=== PATIENT | male | born 1965 | race Caucasian/White ===

== ENCOUNTER 2017-02-18 04:12 | Inpatient (IN) | payer OTHER ==
[~2017-02-18] VITALS: Ht 182.9 cm; Wt 116.6 kg
[2017-02-18 04:15] VITALS: BP_SYST 111
--- NOTE | 2017-02-18 04:15 | NUR ---
Placed in room 6. Placed on hotel and dining room cashier, blood pressure machine and pulse oximeter. To gown for exam. Side rails up. Report given to Jason RATLIFF.
--- NOTE | 2017-02-18 04:20 | NUR ---
Patient brought to ED via ALS a/o x 4 with c/o near syncope and generalized weakness. Per patient, he reports taking an increased dose of seraquil and began to feel faint. States he began feeling generalized weakness. Denies CP. Per EMS, upon arrival patient skin was diaphoretic. Patients skin cool and dry upon arrival. Presents with BP 104/63. Patient feels as if he may be having a panic attack. at bedside. Will continue to monitor.
--- NOTE | 2017-02-18 04:20 | NUR ---
ED MD Ortega at bedside for medical evaluation.
[2017-02-18] MEDS ORDERED: NACL 0.9% 1,000 ML IV ONE ×2 (04:45→06:30)
[2017-02-18 05:04] LABS: CALCIUM 8.4 mg/dL (8.4-11.0); CREATININE 1.51 mg/dL (0.55-1.30); POTASSIUM 3.4 mmol/L (3.5-5.1)
[2017-02-18 05:06] LABS: BASOPHILS % (AUTO) 2.8 % (0.0-2.0); EOSINOPHILS % (AUTO) 0.6 % (0.0-4.0); HEMOGLOBIN 14.4 g/dL (14.0-18.0); INR 1.1 (0.80-1.20); LYMPHOCYTES # (AUTO) 1.3 K/uL (1.0-5.5); LYMPHOCYTES % (AUTO) 28.4 % (20.5-51.5); MEAN CORPUSCULAR HEMOGLOBIN 31 pg (27-31); MEAN CORPUSCULAR HGB CONC 34 % (32-36); MEAN CORPUSCULAR VOLUME 92 fL (79.0-98.0); MONOCYTES % (AUTO) 14.7 % (1.7-9.3); NEUTROPHILS # (AUTO) 2.6 K/uL (1.8-7.7); NEUTROPHILS % (AUTO) 53.5 % (40.0-70.0); PLATELET COUNT (AUTO) 141 K/uL (130-430); PROTHROMBIN TIME 11.7 SECS (9.5-12.5); RED BLOOD CELL COUNT(AUTO) 4.65 MIL/uL (4.2-6.2); WHITE BLOOD COUNT (AUTO) 4.7 K/uL (4.8-10.8)
[2017-02-18 05:07] LABS: BASOPHILS # (AUTO) 0.1 K/uL (0.0-0.2); MONOCYTES # (AUTO) 0.7 K/uL (0.0-1.0)
--- NOTE | 2017-02-18 05:07 | NUR ---
Medicated per MD orders. IVF infusing with no s/s of infiltration at this time. Will continue to monitor.
[2017-02-18 05:11] LABS: ALBUMIN 3.3 g/dL (3.4-4.8); TOTAL BILIRUBIN 0.6 mg/dL (0.0-1.0)
--- NOTE | 2017-02-18 05:24 | NUR ---
Radiology at bedside.
--- NOTE | 2017-02-18 06:32 | NUR ---
Medicated per MD orders. IVF infusing with no s/s of infiltration at this time. Will continue to monitor.
--- NOTE | 2017-02-18 06:51 | NUR ---
Patient transported off unit via gurney for CT via radiology staff.
--- NOTE | 2017-02-18 07:10 | NUR ---
Report given to Chelle RATLIFF.
[2017-02-18 07:17] LABS: BILIRUBIN,URINE NEGATIVE (NEGATIVE); BLOOD, URINE NEGATIVE (NEGATIVE); CLARITY/URINE CLEAR (CLEAR); COLOR,URINE YELLOW (YELLOW); GLUCOSE,URINE NEGATIVE (NEGATIVE); KETONES,URINE TRACE (NEGATIVE); LEUKOCYTE ESTERASE ,URINE NEGATIVE (NEGATIVE); NITRITE, URINE NEGATIVE (NEGATIVE); PROTEIN URINE 1+ (NEGATIVE)
[2017-02-18 07:28] LABS: BACTERIA,URINE None Seen /HPF (None Seen); HYALINE CASTS, URINE 0-10 /LPF (None Seen); MUCUS,URINE 3+ /LPF (None Seen); RBC,URINE 0-3 /HPF (0-3); WBC,URINE 0-3 /HPF (0-3)
[2017-02-18] MEDS ORDERED: GABA-529 PO (08:08)
[2017-02-18] MEDS ORDERED: QUET200T PO (08:08)
[2017-02-18] MEDS ORDERED: DIVA250T34 PO (08:08)
[2017-02-18] MEDS ORDERED: DIVA500T4 PO (08:08)
[2017-02-18] MEDS ORDERED: MELA3TAB37 PO (08:08)
[2017-02-18] MEDS ORDERED: BUPR300T55 PO (08:08)
[2017-02-18] MEDS ORDERED: BUSP5TAB3 PO (08:08)
[2017-02-18] MEDS ORDERED: OMEP20CA10 PO (08:08)
[2017-02-18] MEDS ORDERED: LOSA50TA3 PO (08:08)
[2017-02-18] MEDS ORDERED: PROP10TA10 PO (08:08)
[2017-02-18] MEDS ORDERED: ROPI2TAB4 PO (08:08)
--- NOTE | 2017-02-18 08:25 | NUR ---
Patient will be admitted to care of DR MAY. Admitted to TELEMETRY unit. Will go to room 101-A. Belongings list completed. Summary report printed. Report will be given at bedside.
[2017-02-18 08:30] VITALS: BP_SYST 115
--- NOTE | 2017-02-18 08:30 | NUR ---
ADMISSION NOTE Received patient from ER via gurney. Patient admitted with diagnosis of syncope. Patient is awake, alert, oriented X4. Patient oriented to hospital room, call light, toileting, pain management and safety-teach back done. Patient informed that Adelaida will be nurse and that their room number is 101A. Personal belongings checked and Belongings List documented. Call light within reach.
[2017-02-18] MEDS: NACL 0.9% 1,000 ML IV SCH ×2 (08:59→18:49)
--- NOTE | 2017-02-18 09:00 | NUR ---
Patient alert/oriented x4 , denies any pain , discussed plan of care , lab result, hydration , cardiac monitoring for possible arrhythmia, safety to call for assistance if he wants to get out of bed call light within reach, verbalized understanding, Iv fluid started , encouraged to increase oral fluid intake , provided water and urinals at bedside for safety.
[2017-02-18] MEDS ORDERED: OMEPRAZOLE 20 MG CAPSULE.DR (PriLOSEC) PO SCH (10:45)
[2017-02-18] MEDS ORDERED: PROPRANOLOL HCL 10 MG TABLET (INDERAL) PO SCH (10:45)
--- NOTE | 2017-02-18 12:30 | NUR ---
Resting in bed after lunch denies any dizziness, tolerates po well , needs attended.
[2017-02-18] MEDS ORDERED: PROPRANOLOL HCL 10 MG TABLET (INDERAL) PO PRN (14:53)
--- NOTE | 2017-02-18 14:55 | NUR ---
Complaining of chronic posterior headache 09/26 denies any dizziness no blurring of vision , vitals sign stable , Dr Garcia informed with n.o carried out will follow up.
[2017-02-18] MEDS ORDERED: ACETAMINOPHEN 325 MG TABLET PO PRN (15:00)
[2017-02-18] MEDS: busPIRone HCL 5 MG TABLET PO SCH ×2 (15:02→20:16)
--- NOTE | 2017-02-18 15:06 | NUR ---
PSYCH CONSULT CALLED TO DR ORTIZ, DR MATHEWS APICULTURIST, RE: ADJUSTMENT OF PSYCH MEDS. SPOKE TO KEELY
[2017-02-18] MEDS ORDERED: ACETAMINOPHEN 325 MG TABLET ONE (15:10)
[2017-02-18 15:56] VITALS: BP_SYST 133
[2017-02-18 19:15] VITALS: BP_SYST 124
--- NOTE | 2017-02-18 19:15 | NUR ---
Initial Notes Received patient in bed, awake alert oriented x4 with at bedside. No s/s of any distress noted. IV noted L a/c 20g no infiltrate and with good blood return. All extremities are strong, bedrest d/t syncopal episode at home . Discussed plan of care with patient and verbalized understanding. Left bed in low position, bed alarm on and with side rails up x3. Will cont to monitor.
[2017-02-18] MEDS ORDERED: DIVALPROEX SODIUM 500 MG TAB.SR.24H (DEPAKOTE ER) PO SCH (21:00)
[2017-02-18] MEDS ORDERED: GABAPENTIN 100 MG CAPSULE PO SCH (21:00)
--- NOTE | 2017-02-18 21:15 | NUR ---
Rounds Patient is awake watching tv at this time. No s/s of any distress noted. Call light in reach, will cont to monitor.
--- NOTE | 2017-02-18 23:15 | NUR ---
Rounds Patient is awake watching at this time. No s/s of any distress noted. Call light in reach, will cont to monitor.
--- NOTE | 2017-02-18 23:37 | NUR ---
Tylenol for headache Admin Tylenol PRN for headache. Will reassess after 30 mins.
[2017-02-19 00:26] VITALS: BP_SYST 128
--- NOTE | 2017-02-19 00:50 | NUR ---
Inderal PRN for agitation Admin Inderal PRN for agitation. Will cont to monitor.
--- NOTE | 2017-02-19 02:50 | NUR ---
Rounds Assisted to b/r and safely back to bed. No s/s of any distress noted. Call light in reach, will cont to monitor.
[2017-02-19] MEDS: NACL 0.9% 1,000 ML IV SCH (03:45)
[2017-02-19 04:43] VITALS: BP_SYST 133
--- NOTE | 2017-02-19 06:48 | NUR ---
Final Notes Patient is resting at this time. No c/o pain or distress noted. All needs met and anticipated by nurses. Call light in reach, will endorse.
[2017-02-19 07:49] LABS: BASOPHILS % (AUTO) 0.5 % (0.0-2.0); EOSINOPHILS # (AUTO) 0.1 K/uL (0.0-0.4); EOSINOPHILS % (AUTO) 2.6 % (0.0-4.0); HEMOGLOBIN 13.5 g/dL (14.0-18.0); LYMPHOCYTES # (AUTO) 2.1 K/uL (1.0-5.5); LYMPHOCYTES % (AUTO) 36.5 % (20.5-51.5); MEAN CORPUSCULAR HEMOGLOBIN 31 pg (27-31); MEAN CORPUSCULAR HGB CONC 34 % (32-36); MEAN CORPUSCULAR VOLUME 93 fL (79.0-98.0); MONOCYTES # (AUTO) 0.6 K/uL (0.0-1.0); MONOCYTES % (AUTO) 10.1 % (1.7-9.3); NEUTROPHILS % (AUTO) 50.3 % (40.0-70.0); PLATELET COUNT (AUTO) 133 K/uL (130-430); RED BLOOD CELL COUNT(AUTO) 4.32 MIL/uL (4.2-6.2); RED CELL DISTRIBUTION WIDTH 12.8 % (9.0-15.0); WHITE BLOOD COUNT (AUTO) 5.8 K/uL (4.8-10.8)
[2017-02-19 07:53] VITALS: BP_SYST 127
--- NOTE | 2017-02-19 07:53 | NUR ---
Rounds Slept well after tylenol last night , denies any headache, no dizziness, plan of care, medication , safety discussed with patient verbalized understandings, needs attended.
[2017-02-19 08:16] LABS: ALBUMIN 3.1 g/dL (3.4-4.8); CALCIUM 8.1 mg/dL (8.4-11.0); CREATININE 1.21 mg/dL (0.55-1.30); POTASSIUM 4.3 mmol/L (3.5-5.1); TOTAL BILIRUBIN 0.7 mg/dL (0.0-1.0)
[2017-02-19] MEDS: busPIRone HCL 5 MG TABLET PO SCH (08:21)
[2017-02-19] MEDS ORDERED: buPROPion HCL 150 MG XL TAB PO SCH (09:00)
[2017-02-19] MEDS ORDERED: DIVALPROEX SODIUM 250 MG TABLET(DEPAKOTE) PO SCH (09:00)
--- NOTE | 2017-02-19 10:00 | NUR ---
Mobility Ambulate with steady gait no dizziness denies any headache, safety precaution instructed verbalized understanding . needs attended.
--- NOTE | 2017-02-19 11:00 | NUR ---
Seen and examined by Dr. Mcgill, [place] psychiatrist , discussed adjustment of medication patient agreed .
[2017-02-19] MEDS ORDERED: QUET200T PO (11:21)
[2017-02-19] MEDS ORDERED: LAM25 PO (11:22)
[2017-02-19 11:43] VITALS: BP_SYST 150
[2017-02-19 12:32] VITALS: BP_SYST 134
--- NOTE | 2017-02-19 12:35 | NUR ---
D/C Patient Patient given medication reconciliation form and D/C instructions. Exit Care provided. Patient verbalized understanding. MD discussed with patient the results and treatment provided. Ambulatory with steady gait for discharge to home. Patient in stable condition, ID band removed. IV catheter removed, intact and dressing applied, no active bleeding. Rx of SEROQUEL AND LAMICTAL given. Patient educated on pain management. All belongings sent with patient.
--- NOTE | 2017-02-19 13:00 | NUR ---
Discharge home accompanied by the sister via private car.
[2017-02-19] MEDS ORDERED: QUEtiapine FUMARATE 100 MG TABLET PO SCH (21:00)
[2017-02-20] MEDS ORDERED: LamoTRIgine 25 MG TABLET PO SCH (09:00)
== END 2017-02-19 13:00 | disposition home or self-care (01) | DRG 683 ==
LOC: SED 04:12 → STU 07:45 → SMU 02-19 12:54
PROVIDERS: ADMIT Internal Medicine
DX: N17.9 Acute kidney failure, unspecified (principal); F10.94 Alcohol use, unspecified with alcohol-induced mood disorder; I10 Essential (primary) hypertension; F25.0 Schizoaffective disorder, bipolar type; Y90.9 Presence of alcohol in blood, level not specified; F19.21 Other psychoactive substance dependence, in remission; E86.0 Dehydration; F29 Unspecified psychosis not due to a substance or known physiological condition; I95.1 Orthostatic hypotension; I77.810 Thoracic aortic ectasia; K21.9 Gastro-esophageal reflux disease without esophagitis; W19.XXXA Unspecified fall, initial encounter; Y93.89 Activity, other specified; Y92.89 Other specified places as the place of occurrence of the external cause; Y99.8 Other external cause status; Z79.899 Other long term (current) drug therapy; Z82.49 Family history of ischemic heart disease and other diseases of the circulatory system; Z82.3 Family history of stroke; Z87.891 Personal history of nicotine dependence
CPT/HCPCS: 36415; 70450-TC; 71010; 80053; 81000-TC; 82550-TC; 83605; 83880; 84484; 85025; 85610-TC; 87040-TC; 93005; 93306; 96360; 96361; 99285; J7030

== ENCOUNTER 2017-06-24 20:57 | Emergency (ER) | payer OTHER ==
[~2017-06-24] VITALS: Ht 182.9 cm; Wt 122.5 kg
[~2017-06-24 20:57] MED LIST: BUPR300T55 PO; BUSP5TAB3 PO; DIVA250T34 PO; DIVA500T4 PO; GABA-529 PO; LAM25 PO; LOSA50TA3 PO; MELA3TAB37 PO; OMEP20CA10 PO; PROP10TA10 PO; QUET200T PO
[2017-06-24 21:00] VITALS: BP_SYST 124
--- NOTE | 2017-06-24 23:00 | NUR ---
Patient to ER bed 5 to gown for evaluation. Side rails up. Report given by VEY Hanley to EVY Cuevas.
--- NOTE | 2017-06-24 23:01 | NUR ---
Patient AAOx4, ambulatory. Patient states having cough and fever for approximately 6 days prior to ER visit. Patient +nausea, denies vomiting and diarrhea at this time. Patient denies abdominal pain, SOB, and chest pain at this time. Patient states he has been "taking medication for it" but has no relief of symptoms. Patient denies any other complaints.
--- NOTE | 2017-06-24 23:18 | NUR ---
ER Dr. Potter at bedside examining patient.
[2017-06-25 00:34] VITALS: BP_SYST 124
--- NOTE | 2017-06-25 00:34 | NUR ---
Note adalidone in EDM - 06/25/17 at 0036 by JACQUIEEDWALEX Patient given written and verbal discharge instructions and verbalizes understanding. ER discussed with patient the results and treatment provided. Patient in stable condition. ID arm band removed. Rx of Paz ODT,Ibuprofen 800 mg and guaifenesin syrup given. Patient educated on pain management and to follow up with PMD. Pain Scale 0/10. Opportunity for questions provided and answered.
--- NOTE | 2017-06-25 00:34 | NUR ---
Patient given written and verbal discharge instructions and verbalizes understanding. ER MD discussed with patient the results and treatment provided. Patient in stable condition. ID arm band removed. Rx of Zofran ODT,Ibuprofen 800 mg and guaifenesin syrup given. Patient educated on pain management and to follow up with PMD. Pain Scale 0/10. Opportunity for questions provided and answered.
== END 2017-06-25 00:34 | disposition home or self-care (01) ==
LOC: SED 20:57
DX: A08.4 Viral intestinal infection, unspecified (principal); K21.9 Gastro-esophageal reflux disease without esophagitis; I10 Essential (primary) hypertension; J44.9 Chronic obstructive pulmonary disease, unspecified; Z79.899 Other long term (current) drug therapy
CPT/HCPCS: 36415; 86710; 99284

== ENCOUNTER 2021-07-20 17:33 | Emergency (ER) | payer OTHER, SELFPAY ==
[~2021-07-20] VITALS: Ht 182.9 cm; Wt 122.5 kg
[~2021-07-20 17:33] MED LIST changes: +ALBU90AE2 INH; +BUSP30TA2 PO; +DICY20TA55 PO; +DIVA-74 PO; +DIVA500T2 PO; +EXCED PO; +FLO110 INH; +LAMO100T31 PO; +LIP20 PO; +LORA-258 PO; +LOSA1TAB43 PO; -MELA3TAB37 PO; +MELA3TAB41 PO; +METO25TA3 PO; +MONT10TA22 PO; +NEU100 PO; -OMEP20CA10 PO; +OMEP20CA15 PO; +PRIM50TA PO; +QUET400T PO; +RANI-362 PO; +ROPI2TAB4 PO; +TRAZ50TA54 PO; +WELSR150 PO
[2021-07-20 18:40] VITALS: BP_SYST 142
--- NOTE | 2021-07-20 18:40 | NUR ---
Patient to ER CHAIR for evaluation. Side rails up. Report given to EVY JIMENEZ
--- NOTE | 2021-07-20 19:12 | NUR ---
ER Dr. Waters at bedside examining patient.
[2021-07-20] MEDS ORDERED: DECADRON 4 MG TABLET ONE (19:28)
[2021-07-20] MEDS ORDERED: DEXAMETHASONE SOD PHOSPHATE 4 MG/ML VIAL PO ONE (19:30)
[2021-07-20] MEDS ORDERED: KETOROLAC TROMETHAMINE 60 MG/2 ML VIAL IM ONE (19:30)
[2021-07-20] MEDS ORDERED: cefTRIAXone 1 GM in LIDOCAINE 1%, 20 ML MDV 2.1 ML IM ONE (19:30)
[2021-07-20] MEDS ORDERED: MED4 PO (20:14)
[2021-07-20] MEDS ORDERED: NAPR-1172 PO (20:14)
[2021-07-20] MEDS ORDERED: AMOX-426 PO (20:14)
[2021-07-20 20:30] VITALS: BP_SYST 136
--- NOTE | 2021-07-20 20:30 | NUR ---
Patient given written and verbal discharge instructions and verbalizes understanding. ER MD discussed with patient the results and treatment provided. Patient in stable condition. ID arm band removed. No IV Rx of augmentin, methylpredisolone, naprosyn given. Patient educated on pain management and to follow up with PMD. Pain Scale 5/10. Opportunity for questions provided and answered. Medication side effect fact sheet provided.
== END 2021-07-20 20:30 | disposition home or self-care (01) ==
LOC: SED 17:33
DX: J32.9 Chronic sinusitis, unspecified (principal); I10 Essential (primary) hypertension; K21.9 Gastro-esophageal reflux disease without esophagitis
CPT/HCPCS: 96372; 99284; J0696; J1885; J2001; J8540; 99283; J1100

== ENCOUNTER 2022-01-28 15:54 | Emergency (ER) | payer OTHER ==
[~2022-01-28] VITALS: Ht 182.9 cm; Wt 117.5 kg
[~2022-01-28 15:54] MED LIST changes: +AMOX-426 PO; +MED4 PO; +NAPR-1172 PO
[2022-01-28 16:28] VITALS: BP_SYST 136
--- NOTE | 2022-01-28 16:36 | NUR ---
Patient triaged and placed in waiting room. VSS and patient appears in no acute distress at this time. Accompanied by SELF, awaiting available bed, and MD notified of need for MSE.
--- NOTE | 2022-01-28 18:00 | NUR ---
ER at bedside examining patient.
--- NOTE | 2022-01-28 18:21 | NUR ---
Pt presents to the ER BIB from urgent care. CC Chronic back pain Onset 2 years ago Pt describes a flare up in past 2 weeks. pain scale 10/10 sharp pain to right posterior flank radiates to left posterior flank. Pt states elevating legs to reduce pressure on lower back is minimal relief. Pmhx HTN, tremors, sleep apnea, asthma NKA
[2022-01-28] MEDS ORDERED: MORPHINE 4 MG INJ. 4 MG/ML VIAL IM ONE (18:30)
[2022-01-28] MEDS ORDERED: LIDO1ADH71 TD (18:47)
[2022-01-28] MEDS ORDERED: METH-634 PO (18:47)
[2022-01-28] MEDS ORDERED: lidocain (18:47)
--- NOTE | 2022-01-28 20:30 | NUR ---
Patient given written and verbal discharge instructions and verbalizes understanding. ER MD discussed with patient the results and treatment provided. Patient in stable condition. ID arm band removed. Rx of given. Patient educated on pain management and to follow up with PMD. Pain Scale 3/10. Opportunity for questions provided and answered. Medication side effect fact sheet provided. Patient A/ox4, VSS, resp even and unlabored. NAD noted at this time.
[2022-01-28 20:48] VITALS: BP_SYST 125
== END 2022-01-28 20:48 | disposition home or self-care (01) ==
LOC: SED 15:54
DX: M51.26 Other intervertebral disc displacement, lumbar region (principal); I10 Essential (primary) hypertension; K21.9 Gastro-esophageal reflux disease without esophagitis; Z79.899 Other long term (current) drug therapy
CPT/HCPCS: 99283; 96372; J2270

== ENCOUNTER 2022-10-13 13:59 | Inpatient (IN) | payer OTHER ==
[~2022-10-13] VITALS: Ht 182.9 cm; Wt 114.8 kg
[~2022-10-13 13:59] MED LIST changes: +LIDO1ADH71 TD; +METH-634 PO; +MONT-47 PO; -MONT10TA22 PO; +lidocain
[2022-10-13 14:30] VITALS: BP_SYST 122
[2022-10-13 16:05] LABS: CREATININE 4.77 mg/dL (0.55-1.30)
[2022-10-13 16:09] LABS: ALBUMIN 3.2 g/dL (3.4-4.8); TOTAL BILIRUBIN 0.3 mg/dL (0.0-1.0)
[2022-10-13 17:49] LABS: BASOPHILS % (AUTO) 0.4 % (0.0-2.0); EOSINOPHILS # (AUTO) 0.1 K/uL (0.0-0.4); EOSINOPHILS % (AUTO) 1.7 % (0.0-4.0); HEMATOCRIT 38.2 % (36-54); HEMOGLOBIN 12.8 g/dL (14.0-18.0); LYMPHOCYTES # (AUTO) 1.1 K/uL (1.0-5.5); LYMPHOCYTES % (AUTO) 24.4 % (20.5-51.5); MEAN CORPUSCULAR HEMOGLOBIN 31 pg (27-31); MEAN CORPUSCULAR HGB CONC 34 % (32-36); MEAN CORPUSCULAR VOLUME 94 fL (79.0-98.0); MONOCYTES # (AUTO) 0.6 K/uL (0.0-1.0); MONOCYTES % (AUTO) 13.3 % (1.7-9.3); NEUTROPHILS # (AUTO) 2.8 K/uL (1.8-7.7); NEUTROPHILS % (AUTO) 60.2 % (40.0-70.0); PLATELET COUNT (AUTO) 121 K/uL (130-430); RED BLOOD CELL COUNT(AUTO) 4.08 MIL/uL (4.2-6.2); RED CELL DISTRIBUTION WIDTH 12.9 % (9.0-15.0); WHITE BLOOD COUNT (AUTO) 4.6 K/uL (4.8-10.8)
[2022-10-13] MEDS ORDERED: NACL 0.9% 1,000 ML IV ONE (19:30)
[2022-10-13] MEDS ORDERED: MELATONIN 3 MG TABLET PO SCH (21:45)
[2022-10-13] MEDS ORDERED: methylPREDNISolone 4 MG TABLET PO SCH (21:45)
[2022-10-13] MEDS ORDERED: PROPRANOLOL HCL 10 MG TABLET (INDERAL) PO SCH (21:45)
[2022-10-13] MEDS ORDERED: OMEPRAZOLE Non-Formulary 20 MG CAPSULE.DR PO SCH (21:45)
[2022-10-14] MEDS ORDERED: methocarbamoL 500 MG TABLET PO SCH
[2022-10-14 01:03] VITALS: BP_SYST 129
[2022-10-14 01:34] VITALS: BP_SYST 129
[2022-10-14 07:35] VITALS: BP_SYST 127
[2022-10-14 07:39] LABS: BASOPHILS % (AUTO) 0.3 % (0.0-2.0); EOSINOPHILS # (AUTO) 0.1 K/uL (0.0-0.4); EOSINOPHILS % (AUTO) 1.6 % (0.0-4.0); HEMATOCRIT 36.8 % (36-54); HEMOGLOBIN 12.5 g/dL (14.0-18.0); LYMPHOCYTES # (AUTO) 0.9 K/uL (1.0-5.5); LYMPHOCYTES % (AUTO) 21.5 % (20.5-51.5); MEAN CORPUSCULAR HEMOGLOBIN 32 pg (27-31); MEAN CORPUSCULAR HGB CONC 34 % (32-36); MEAN CORPUSCULAR VOLUME 93 fL (79.0-98.0); MONOCYTES # (AUTO) 0.6 K/uL (0.0-1.0); MONOCYTES % (AUTO) 14.5 % (1.7-9.3); NEUTROPHILS # (AUTO) 2.6 K/uL (1.8-7.7); NEUTROPHILS % (AUTO) 62.1 % (40.0-70.0); PLATELET COUNT (AUTO) 122 K/uL (130-430); RED BLOOD CELL COUNT(AUTO) 3.94 MIL/uL (4.2-6.2); RED CELL DISTRIBUTION WIDTH 12.6 % (9.0-15.0); WHITE BLOOD COUNT (AUTO) 4.2 K/uL (4.8-10.8)
[2022-10-14 07:47] LABS: CALCIUM 8.2 mg/dL (8.4-11.0); CREATININE 3.97 mg/dL (0.55-1.30)
[2022-10-14] MEDS ORDERED: LamoTRIgine 25 MG TABLET PO SCH (09:00)
[2022-10-14] MEDS ORDERED: NAPROXEN 250 MG TABLET PO SCH (09:00)
[2022-10-14] MEDS ORDERED: buPROPion HCL 150 MG XL TAB PO SCH (09:00)
[2022-10-14] MEDS ORDERED: DIVALPROEX SODIUM 250 MG TABLET(DEPAKOTE) PO SCH (09:00)
[2022-10-14] MEDS: busPIRone HCL 5 MG TABLET PO SCH ×3 (10:04→20:58)
[2022-10-14] MEDS: PANTOPRAZOLE SODIUM 40 MG TAB PO SCH (10:04)
[2022-10-14] MEDS: MONTELUKAST 10 MG TABLET PO SCH (10:04)
[2022-10-14 11:32] VITALS: BP_SYST 134
[2022-10-14] MEDS: 0.45% NACL 1,000 ML IV SCH (11:36)
[2022-10-14] MEDS: buPROPion HCL 150 MG TABLET.SA PO SCH (11:42)
[2022-10-14 16:10] VITALS: BP_SYST 124
[2022-10-14 20:00] VITALS: BP_SYST 126
[2022-10-14] MEDS: traZODone HCL 50 MG TABLET (DESYREL) PO SCH (20:57)
[2022-10-14] MEDS: DIVALPROEX SODIUM 500 MG TABLET( DEPAKOTE) PO SCH (20:58)
[2022-10-14] MEDS: PRIMIDONE 50 MG TABLET PO SCH (20:58)
[2022-10-14] MEDS: QUEtiapine FUMARATE 100 MG TABLET PO SCH (20:58)
[2022-10-14] MEDS: GABAPENTIN 100 MG CAPSULE PO SCH (20:58)
[2022-10-14] MEDS: ACETAMINOPHEN 325 MG TABLET PO PRN (20:59)
[2022-10-14] MEDS: ATORVASTATIN 20 MG TABLET PO SCH (20:59)
[2022-10-14] MEDS: METOPROLOL SUCCINATE 25 MG TAB.SR.24H (TOPROL XL) PO SCH (20:59)
[2022-10-14] MEDS ORDERED: QUEtiapine FUMARATE 100 MG TABLET PO SCH (21:00)
[2022-10-14] MEDS ORDERED: DIVALPROEX SODIUM 500 MG TAB.SR.24H (DEPAKOTE ER) PO SCH (21:00)
[2022-10-15 00:44] VITALS: BP_SYST 122
[2022-10-15] MEDS: ACETAMINOPHEN 325 MG TABLET PO PRN (03:43)
[2022-10-15] MEDS: 0.45% NACL 1,000 ML IV SCH (05:35)
[2022-10-15 06:15] LABS: BILIRUBIN,URINE NEGATIVE (NEGATIVE); BLOOD, URINE NEGATIVE (NEGATIVE); CLARITY/URINE CLEAR (CLEAR); COLOR,URINE YELLOW (YELLOW); GLUCOSE,URINE NEGATIVE (NEGATIVE); KETONES,URINE NEGATIVE (NEGATIVE); LEUKOCYTE ESTERASE ,URINE NEGATIVE (NEGATIVE); NITRITE, URINE NEGATIVE (NEGATIVE); PROTEIN URINE NEGATIVE (NEGATIVE); UROBILINOGEN,URINE 0.2 (0.2-1.0)
[2022-10-15 07:31] LABS: BASOPHILS % (AUTO) 0.4 % (0.0-2.0); EOSINOPHILS % (AUTO) 0.5 % (0.0-4.0); HEMATOCRIT 34.6 % (36-54); HEMOGLOBIN 11.9 g/dL (14.0-18.0); LYMPHOCYTES % (AUTO) 21.3 % (20.5-51.5); MEAN CORPUSCULAR HEMOGLOBIN 32 pg (27-31); MEAN CORPUSCULAR HGB CONC 34 % (32-36); MEAN CORPUSCULAR VOLUME 93 fL (79.0-98.0); MONOCYTES # (AUTO) 0.5 K/uL (0.0-1.0); MONOCYTES % (AUTO) 10.6 % (1.7-9.3); NEUTROPHILS # (AUTO) 3.1 K/uL (1.8-7.7); NEUTROPHILS % (AUTO) 67.2 % (40.0-70.0); PLATELET COUNT (AUTO) 114 K/uL (130-430); RED BLOOD CELL COUNT(AUTO) 3.72 MIL/uL (4.2-6.2); RED CELL DISTRIBUTION WIDTH 12.5 % (9.0-15.0); WHITE BLOOD COUNT (AUTO) 4.7 K/uL (4.8-10.8)
[2022-10-15 07:50] LABS: ALBUMIN 2.9 g/dL (3.4-4.8); CALCIUM 7.8 mg/dL (8.4-11.0); CREATININE 3.04 mg/dL (0.55-1.30); TOTAL BILIRUBIN 0.3 mg/dL (0.0-1.0)
[2022-10-15 08:00] VITALS: BP_SYST 130
[2022-10-15] MEDS: PANTOPRAZOLE SODIUM 40 MG TAB PO SCH (09:31)
[2022-10-15] MEDS: busPIRone HCL 5 MG TABLET PO SCH ×3 (09:31→22:31)
[2022-10-15] MEDS: buPROPion HCL 150 MG TABLET.SA PO SCH (09:32)
[2022-10-15] MEDS: MONTELUKAST 10 MG TABLET PO SCH (09:32)
[2022-10-15] MEDS: LamoTRIgine 100 MG TABLET PO SCH (09:32)
[2022-10-15] MEDS: DIVALPROEX SODIUM 500 MG TABLET( DEPAKOTE) PO SCH ×2 (09:32→22:31)
[2022-10-15 12:40] VITALS: BP_SYST 107
[2022-10-15 13:06] LABS: PTH, INTACT 43 pg/mL (15-65)
[2022-10-15] MEDS: SIMETHICONE 80 MG TAB.CHEW PO SCH ×2 (16:10→22:31)
[2022-10-15 16:23] VITALS: BP_SYST 112
[2022-10-15 16:35] LABS: CHLORIDE,URINE RANDOM 61 mmol/L (55-125)
[2022-10-15 20:00] VITALS: BP_SYST 145
[2022-10-15] MEDS: ATORVASTATIN 20 MG TABLET PO SCH (22:29)
[2022-10-15] MEDS: METOPROLOL SUCCINATE 25 MG TAB.SR.24H (TOPROL XL) PO SCH (22:30)
[2022-10-15] MEDS: QUEtiapine FUMARATE 100 MG TABLET PO SCH (22:30)
[2022-10-15] MEDS: GABAPENTIN 100 MG CAPSULE PO SCH (22:31)
[2022-10-15] MEDS: PRIMIDONE 50 MG TABLET PO SCH (22:31)
[2022-10-15] MEDS: traZODone HCL 50 MG TABLET (DESYREL) PO SCH (23:59)
[2022-10-16 01:09] VITALS: BP_SYST 122
[2022-10-16] MEDS: 0.45% NACL 1,000 ML IV SCH (01:57)
[2022-10-16 08:00] VITALS: BP_SYST 126
[2022-10-16 08:05] LABS: BASOPHILS % (AUTO) 0.4 % (0.0-2.0); EOSINOPHILS # (AUTO) 0.1 K/uL (0.0-0.4); EOSINOPHILS % (AUTO) 1.9 % (0.0-4.0); HEMATOCRIT 35.1 % (36-54); HEMOGLOBIN 12.1 g/dL (14.0-18.0); LYMPHOCYTES # (AUTO) 1.5 K/uL (1.0-5.5); LYMPHOCYTES % (AUTO) 31.7 % (20.5-51.5); MEAN CORPUSCULAR HEMOGLOBIN 32 pg (27-31); MEAN CORPUSCULAR HGB CONC 34 % (32-36); MEAN CORPUSCULAR VOLUME 93 fL (79.0-98.0); MONOCYTES # (AUTO) 0.5 K/uL (0.0-1.0); MONOCYTES % (AUTO) 9.8 % (1.7-9.3); NEUTROPHILS # (AUTO) 2.7 K/uL (1.8-7.7); NEUTROPHILS % (AUTO) 56.2 % (40.0-70.0); PLATELET COUNT (AUTO) 108 K/uL (130-430); RED BLOOD CELL COUNT(AUTO) 3.79 MIL/uL (4.2-6.2); RED CELL DISTRIBUTION WIDTH 12.3 % (9.0-15.0); WHITE BLOOD COUNT (AUTO) 4.7 K/uL (4.8-10.8)
[2022-10-16 08:06] LABS: CREATININE, URINE 91.5 mg/dL (Not Estab.); MICROALBUMIN URINE RANDOM 6.5 ug/mL (Not Estab.)
[2022-10-16 08:15] LABS: CALCIUM 8.3 mg/dL (8.4-11.0); CREATININE 2.42 mg/dL (0.55-1.30)
[2022-10-16] MEDS ORDERED: buPROPion HCL 150 MG TABLET.SA PO SCH (09:00)
[2022-10-16] MEDS: DIVALPROEX SODIUM 500 MG TABLET( DEPAKOTE) PO SCH (09:27)
[2022-10-16] MEDS: SIMETHICONE 80 MG TAB.CHEW PO SCH ×2 (09:28→15:00)
[2022-10-16] MEDS: MONTELUKAST 10 MG TABLET PO SCH (09:28)
[2022-10-16] MEDS: PANTOPRAZOLE SODIUM 40 MG TAB PO SCH (09:28)
[2022-10-16] MEDS: busPIRone HCL 5 MG TABLET PO SCH ×2 (09:29→15:00)
[2022-10-16] MEDS: LamoTRIgine 100 MG TABLET PO SCH (09:29)
[2022-10-16] MEDS: ACETAMINOPHEN 325 MG TABLET PO PRN (10:21)
[2022-10-16 11:40] VITALS: BP_SYST 102
[2022-10-16 16:57] VITALS: BP_SYST 110
[2022-10-16 17:06] VITALS: BP_SYST 110
[2022-10-17 13:06] LABS: A/G RATIO 1.1 (0.7-1.7); ALPHA-1-GLOBULIN 0.3 g/dL (0.0-0.4); ALPHA-2-GLOBULIN 0.7 g/dL (0.4-1.0); BETA GLOBULIN 1.1 g/dL (0.7-1.3); GAMMA GLOBULIN 0.6 g/dL (0.4-1.8); GLOBULIN, TOTAL 2.7 g/dL (2.2-3.9); M-SPIKE Not Observed g/dL (Not Observed)
== END 2022-10-16 19:00 | disposition home or self-care (01) | DRG 640 ==
LOC: SED 13:59 → SMU 21:57
PROVIDERS: ADMIT Specialist; ATTEND Specialist
DX: E86.0 Dehydration (principal); N17.0 Acute kidney failure with tubular necrosis; E44.1 Mild protein-calorie malnutrition; N14.0 Analgesic nephropathy; I50.9 Heart failure, unspecified; K21.9 Gastro-esophageal reflux disease without esophagitis; F25.9 Schizoaffective disorder, unspecified; G89.29 Other chronic pain; M54.9 Dorsalgia, unspecified; I11.0 Hypertensive heart disease with heart failure; F31.9 Bipolar disorder, unspecified; F41.9 Anxiety disorder, unspecified; Z79.82 Long term (current) use of aspirin; Z79.899 Other long term (current) drug therapy; Z68.34 Body mass index [BMI] 34.0-34.9, adult; T39.395A Adverse effect of other nonsteroidal anti-inflammatory drugs [NSAID], initial encounter
CPT/HCPCS: 36415; 70450-TC; 76376; 76770; 80048; 80053; 80164; 81003; 82043; 82435; 82570; 83037; 83735; 83970; 84155; 84156; 84165; 84166; 84302; 85025; 86162; 99285